=== PATIENT | male | born 1960 | race Caucasian/White ===

== ENCOUNTER 2018-05-25 11:37 | Observation (INO) ==
[2018-05-25] MEDS ORDERED: Ondansetron 4 MG/2 ML VIAL IVP ONE (12:03)
--- NOTE | 2018-05-25 12:05 | Emergency Department Note ---
Disposition Clinical Impression: Alcoholism /alcohol abuse Concussion with loss of consciousness Qualifiers: Encounter type: initial encounter Qualified Code(s): S06.0X9A - Concussion with loss of consciousness of unspecified duration, initial encounter Disposition: Admitted As Inpatient Condition: Good Head Injury HPI - General Chief complaint: ED Head Injury Stated complaint: fall last night Source: patient, EMS Limitations: no limitations - History of Present Illness HPI Narrative: Patient is a pleasant 68-year-old male with no significant PMH other than alcoholism and hypertension who is presenting to [facility] Emergency Room with a chief complaint off altered mental status by EMS. Neighbors called EMS because he was found unconscious. It appears that he had head injury in the past few days and has bruises on his face. He has loss of consciousness of unclear time. He has been drinking alcohol and unable to quantify the amount. Patient denies any fever or chills. Pt also denies any eye pain or visual disturbances. There is no sore throat or nasal or facial congestion. There is no chest pain or racing heart. No shortness of breath or cough. There is no abdominal pain, nausea, vomiting or diarrhea. No dysuria or flank pain. There is no muskulo-skeletal pain, arthralgia or back pain. Patient also denies rash or pruritus. There is no neurological manifestations, no headache, no vertigo or weakness. The patient also denies any depression, hallucinations and there are no homicidal or suicidal ideations. There is no polyuria or polydipsia. There is no easy bruising or bleeding. Review of other systems is otherwise negative except above. Onset (ago): day(s) Mechanism of Injury: fall from ground level Place: home Loss of Consciousness: yes - Related Data Home Medications Medication Instructions Recorded Confirmed No Known Home Drugs 05/25/18 05/25/18 Allergies/Adverse reactions: Allergies Allergy/AdvReac Type Severity Reaction Status Date / Time No Known Allergies Allergy Verified 02/18/16 18:06 All systems ED: reviewed and negative except as stated. Review of Systems: As Per HPI Constitutional: Denies: fever, chills Eyes: Denies: eye pain, eye discharge ENT ED: Denies: ear pain, throat pain Cardiovascular: Denies: chest pain, palpitations Respiratory: Denies: cough, dyspnea Gastrointestinal: Denies: abdominal pain, nausea Past Medical History - Past Medical History Medical history: Reports: other Psychiatric history: Reports: anxiety, bipolar, depression - Social History Smoking Status: Never smoker Smokeless Tobacco Status: No Alcohol use: Reports: heavy, recent Drug use: Reports: none Physical Exam - General Limitations: no limitations General appearance: lethargic - Head Head exam: normocephalic, normal inspection, other (Fascial bruises on his nose and cheeks) - Eye Eye exam: Present: normal appearance, PERRL, EOMI - Expanded Eye Exam Pupils: Left: reactive - ENT ENT exam: normal exam, normal oropharynx, mucous membranes moist - Expanded ENT Exam External ear exam: Present: normal external inspection Mouth exam: Present: normal external inspection Teeth exam: Present: normal inspection Throat exam: Present: normal inspection - Neck Neck exam: Present: normal inspection, full ROM, trachea midline - Chest Chest inspection: Present: normal inspection, symmetric chest wall rise - Respiratory Respiratory exam: Present: normal lung sounds bilaterally - Cardiovascular Cardiovascular exam: Present: regular rate, normal rhythm, normal heart sounds - Abdominal Exam Abdominal exam: Present: soft, Non-Tender. Absent: tenderness, distention, guarding, rebound, rigidity - Extremities Exam Extremities exam: Present: normal inspection, full ROM. Absent: tenderness, pedal edema - Expanded Upper Extremity Exam Shoulder exam: Present: normal inspection, full ROM Arm exam: Present: normal inspection, full ROM Elbow exam: Present: normal inspection, full ROM Forearm/Wrist exam: Present: normal inspection, full ROM Hand exam: Present: normal inspection, full ROM Vascular exam: Normal: capillary refill, radial pulse - Expanded Lower Extremity Exam Hip/Pelvis exam: Present: normal inspection, full ROM Upper leg exam: Present: normal inspection, full ROM Knee exam: Present: normal inspection, full ROM Lower leg exam: Present: normal inspection, full ROM Ankle exam: Present: normal inspection, full ROM Foot/toe exam: Present: normal inspection, full ROM Neurovascular/Tendon exam: Absent: motor deficit, sensory deficit, tendon deficit - Back Exam Back exam: Present: normal inspection, full ROM. Absent: tenderness - Neurological Exam Neurological exam: Present: alert, oriented X3 - Expanded Neurological Exam Patient oriented to: Present: person, place, time Coma Scale Eye Opening: Spontaneous Coma Scale Motor Response: Obeys Commands Coma Scale Verbal Response: Oriented Coma Scale Total: 15 - Psychiatric Psychiatric exam: Present: normal affect, normal mood - Skin Skin exam: Present: warm, dry, intact, normal color Course Vital Signs Temperature 96.6 F L 05/25/18 11:40 Pulse Rate 72 05/25/18 11:40 Respiratory Rate 17 05/25/18 11:40 Blood Pressure 144/89 05/25/18 11:40 O2 Sat by Pulse Oximetry 100 05/25/18 11:40 Temperature 98.1 F 05/25/18 23:07 Pulse Rate 76 05/25/18 23:07 Respiratory Rate 17 05/25/18 23:07 Blood Pressure 128/87 05/25/18 23:07 O2 Sat by Pulse Oximetry 98 05/25/18 23:07 Oxygen Delivery Oxygen Delivery Room Air Head Injury - Differential Diagnosis Differential Diagnosis: Likely: epidural hematoma, closed head injury, postconcussion sydrome - Medical Records Medical records reviewed: Yes I reviewed the patient's medical records. - Lab Data Lab results reviewed: Yes I reviewed the patient's lab results. Result diagrams: 05/25/18 12:23 05/25/18 12:23 Lab Results 05/25/18 05/25/18 05/25/18 Range/Units 12:07 12:23 12:23 WBC 6.9 (4.3-11.1) K/mcL RBC 5.02 (4.19-5.50) M/mcL Hgb 16.2 (12.9-16.9) g/dL Hct 46.4 (37.5-50.1) % MCV 92.4 (83.0-100.0) fL MCH 32.3 (28.0-33.3) pg MCHC 34.9 (31.6-35.5) g/dL RDW 12.8 (11.5-14.5) % Plt Count 155 (140-400) K/mcL MPV 8.8 L (9.4-12.4) fL Immature Gran % 0.7 (0-4) % Seg Neutrophils % 87.8 % Lymphocytes % 7.9 % Monocytes % 3.3 % Eosinophils % 0.0 % Basophils % 0.3 % Neutrophils # 6.1 (1.6-8.9) K/mcL Lymphocytes # 0.6 (0.6-4.6) K/mcL Monocytes # 0.2 (0.0-1.3) K/mcL Eosinophils # 0.0 (0.0-0.6) K/mcL Basophils # 0.0 (0.0-0.2) K/mcL PT 10.8 (9.4-12.1) Seconds INR 1.0 APTT 25.9 L (26.0-36.0) Seconds Sodium (136-145) mEq/L Potassium (3.5-5.1) mEq/L Chloride (98-107) mEq/L Carbon Dioxide (23-29) mEq/L BUN (6-20) mg/dL Creatinine (0.70-1.30) mg/dL Est GFR ( Amer) (> 60) Est GFR (Non-Af Amer) (> 60) BUN/Creatinine Ratio (6-26) Glucose (70-105) mg/dL POC Glucose 145 H (70-99) mg/dL Calculated Osmolality (280-300) Calcium (8.6-10.3) mg/dL Total Bilirubin (0.3-1.0) mg/dL AST (13-39) Units/L ALT (7-52) Units/L Alkaline Phosphatase (34-104) Units/L Serum Total Protein (6.4-8.9) g/dL Albumin (3.5-5.7) g/dL Globulin (2.4-3.5) g/dL Albumin/Globulin Ratio (1.1-2.2) Ethyl Alcohol (Less than 10) mg/dL 05/25/18 Range/Units 12:23 WBC (4.3-11.1) K/mcL RBC (4.19-5.50) M/mcL Hgb (12.9-16.9) g/dL Hct (37.5-50.1) % MCV (83.0-100.0) fL MCH (28.0-33.3) pg MCHC (31.6-35.5) g/dL RDW (11.5-14.5) % Plt Count (140-400) K/mcL MPV (9.4-12.4) fL Immature Gran % (0-4) % Seg Neutrophils % % Lymphocytes % % Monocytes % % Eosinophils % % Basophils % % Neutrophils # (1.6-8.9) K/mcL Lymphocytes # (0.6-4.6) K/mcL Monocytes # (0.0-1.3) K/mcL Eosinophils # (0.0-0.6) K/mcL Basophils # (0.0-0.2) K/mcL PT (9.4-12.1) Seconds INR APTT (26.0-36.0) Seconds Sodium 129 L (136-145) mEq/L Potassium 4.0 (3.5-5.1) mEq/L Chloride 92 L (98-107) mEq/L Carbon Dioxide 21 L (23-29) mEq/L BUN 11 (6-20) mg/dL Creatinine 0.90 (0.70-1.30) mg/dL Est GFR ( Amer) > 60 (> 60) Est GFR (Non-Af Amer) > 60 (> 60) BUN/Creatinine Ratio 12 (6-26) Glucose 159 H (70-105) mg/dL POC Glucose (70-99) mg/dL Calculated Osmolality 271 L (280-300) Calcium 8.8 (8.6-10.3) mg/dL Total Bilirubin 0.5 (0.3-1.0) mg/dL AST 39 (13-39) Units/L ALT 16 (7-52) Units/L Alkaline Phosphatase 48 (34-104) Units/L Serum Total Protein 7.5 (6.4-8.9) g/dL Albumin 4.2 (3.5-5.7) g/dL Globulin 3.3 (2.4-3.5) g/dL Albumin/Globulin Ratio 1.3 (1.1-2.2) Ethyl Alcohol 186 H (Less than 10) mg/dL - Radiology Data Radiology results reviewed: Yes I reviewed the patient's radiology results. - EKG Data EKG attestation: Yes I reviewed and interpreted this EKG.
[2018-05-25 12:30] LABS: Basophils % 0.3 %; Hematocrit 46.4 % (37.5-50.1); Hemoglobin 16.2 g/dL (12.9-16.9); Immature Granulocytes % 0.7 % (0-4); Lymphocytes # 0.6 K/mcL (0.6-4.6); Lymphocytes % 7.9 %; Mean Corpuscular HGB Conc 34.9 g/dL (31.6-35.5); Mean Corpuscular Hemoglobin 32.3 pg (28.0-33.3); Mean Corpuscular Volume 92.4 fL (83.0-100.0); Mean Platelet Volume 8.8 fL (9.4-12.4); Monocytes # 0.2 K/mcL (0.0-1.3); Monocytes % 3.3 %; Neutrophils # 6.1 K/mcL (1.6-8.9); Platelet Count 155 K/mcL (140-400); Red Blood Count 5.02 M/mcL (4.19-5.50); Red Cell Distribution Width 12.8 % (11.5-14.5); Segmented Neutrophils % 87.8 %
[2018-05-25 12:42] LABS: Prothrombin Time 10.8 Seconds (9.4-12.1)
[2018-05-25 12:45] LABS: Activated Partial Thrombo Time 25.9 Seconds (26.0-36.0)
[2018-05-25 12:53] LABS: Alanine Aminotransferase 16 Units/L (7-52); Albumin 4.2 g/dL (3.5-5.7); Albumin/Globulin Ratio 1.3 (1.1-2.2); Alkaline Phosphatase 48 Units/L (34-104); Aspartate Amino Transferase 39 Units/L (13-39); BUN/Creatinine Ratio 12 (6-26); Bilirubin,Total 0.5 mg/dL (0.3-1.0); Blood Urea Nitrogen 11 mg/dL (6-20); Calcium 8.8 mg/dL (8.6-10.3); Carbon Dioxide 21 mEq/L (23-29); Chloride 92 mEq/L (98-107); Ethanol 186 mg/dL (Less than 10); Globulin 3.3 g/dL (2.4-3.5); Glucose 159 mg/dL (70-105); Osmolality,Calculated 271 (280-300); Sodium 129 mEq/L (136-145); Total Protein 7.5 g/dL (6.4-8.9); eGFR For African Americans > 60 (> 60); eGFR For Non-African Americans > 60 (> 60)
[2018-05-25] MEDS ORDERED: MVI, adult with vitamin K 10 ML in 0.9 % Sodium Chloride 1,000 ML IVC ONE (13:23)
[2018-05-25] MEDS ORDERED: Ondansetron ODT 4 MG TAB.RAPDIS SL PRN ×2 (14:43→15:10)
[2018-05-25] MEDS ORDERED: Naloxone 0.4 MG/ML INJ IVP PRN ×2 (14:43→15:10)
[2018-05-25] MEDS ORDERED: 0.9 % Sodium Chloride 1,000 ML IVC SCH ×3 (14:45→18:00)
[2018-05-25 16:00] LABS: Bilirubin,Urine Negative (Negative); Blood,Urine Negative (Negative); Clarity,Urine Clear (Clear); Color,Urine Yellow (Yellow); Glucose,Urine (UA) 100 mg/dL (Normal); Ketones,Urine 40 mg/dL (Negative); Leukocyte Esterase,Urine Negative (Negative); Nitrite,Urine Negative (Negative); PH,Urine 5.5 pH Units (5.0-8.0); Protein,Urine Negative (Neg-Trace); Specific Gravity,Urine 1.015 (1.010-1.025); Urobilinogen,Urine Normal (Normal)
[2018-05-25 16:17] LABS: Amphetamine Screen,Urine Negative ng/mL (Cutoff=1000); Barbiturate Screen,Urine Negative ng/mL (Cutoff=200); Benzodiazepines Screen,Urine Negative ng/mL (Cutoff=200); Cannabinoid Screen,Urine Positive ng/mL (Cutoff = 50); Cocaine Screen,Urine Negative ng/mL (Cutoff= 300); Opiate Screen,Urine Negative ng/mL (Cutoff=300); Phencyclidine Screen,Urine Negative ng/mL (Cutoff=25)
--- NOTE | 2018-05-25 17:48 | Internal Med History&Physical ---
Date of Encounter: 05/25/18 Time of Encounter: 17:15 Assessment and Plan (1) Hyponatremia Current visit: Yes Status: Acute Normal saline IV ordered. Recheck labs in a.m. (2) Intoxication Current visit: Yes Status: Acute Banana bag ordered. Check folate level in a.m. Will give Augmentin since left shift present on WBC differential with history of vomiting. (3) Facial abrasion Current visit: Yes Status: Acute Will give Augmentin as above. Reassess in a.m. Qualifiers: Encounter type: initial encounter Qualified Code(s): S00.81XA - Abrasion of other part of head, initial encounter (4) Substance abuse Current visit: Yes Status: Acute He does not desire rehabilitation. Internal Medicine - H&P: HPI Chief complaint: Fall, intoxication, vomiting Admitted From: Emergency Dept Plans for Post Hospital Care: Home History of present illness: Mr. Daniel is a 58 year old male who came to emergency room stating he had fallen on the sidewalk last evening while intoxicated. He was able to get up and walk to a friend's house where he spent the night on a couch on the friend' s front porch. On awakening this morning he did not feel well and had diaphoresis and 2-3 episodes of vomiting. He was brought to emergency room and evaluated and admitted to [facility] floor for ongoing care needs. He denies significant pain at the present time. He states he drinks 6-24 cans of beer per day since age 18 except for 2 year interval of being dry approximately 4 years ago. He denies disorders of his liver gallbladder or exocrine pancreas. He does not desire to stop drinking. Past Med Surg Social Fam HX - Past Medical History Medical history: other Additional medical history: skin CA nose Psychiatric history: anxiety, bipolar, depression - Past Surgical History Additional surgical history: Bilateral arm orif. neck fracture with repair. leg orif. - Social History Smoking Status: Never smoker Smokeless Tobacco Status: No Alcohol use: heavy, recent Drug use: none Internal Medicine - H&P: Meds No Known Home Drugs 05/25/18 [History] 3 Allergy/AdvReac Type Severity Reaction Status Date / Time No Known Allergies Allergy Verified 02/18/16 18:06 All Systems PM: A 10-system review of systems was performed and is negative for pertinent findings except as documented above in the HPI. Review of systems: Gen.: He states he has lost approximately 5 pounds within the past 3 months, unintentionally Cardiovascular: He denies AR hypertension heart failure angina DVT or pulmonary embolus Respiratory: He is a lifelong nonsmoker and denies chronic lung disease GI: As per history of present illness : Denies hematuria dysuria or kidney stones Neurologic: Denies large distribution strokes or seizures. Endocrine: He denies diabetes thyroid disease or hyperlipidemia Hematology/oncology: Denies blood disorders cancers or anemia Psychiatric: Denies anxiety depression or other mental health issues [place] skeletal: He had cervical spine fracture 2004 with surgical repair. He denies other bone joint or muscle disorders. - Constitutional Vitals: Temp Pulse Resp BP Pulse Ox 97.7 F 75 16 143/91 99 05/25/18 15:17 05/25/18 15:17 05/25/18 15:17 05/25/18 15:17 05/25/18 15:17 Exam: Gen.: He is a well-developed well-nourished male lying in bed who appears in no acute distress HEENT: He has dried blood on his upper nose and left medial forehead area. Eyes : EOMI. There is no scleral icterus. Mouth: Mucosa is moist. Neck: There is no thyromegaly or adenopathy noted. Heart: Regular without murmurs gallops or ectopics Lungs: No wheezes or crackles are heard. Abdomen: Soft and nontender. No masses or guarding are noted. Extremities: There is no cyanosis edema or clubbing noted. Dorsalis pedis and posterior tibial pulses are 1-2 over 2 bilaterally. Neurologic: Mental status: He is talkative and a good historian. Cranial nerves : Smile is symmetric. Forehead wrinkles bilaterally. Tongue protrudes midline. EOMI. Motor: There is no pronator drift. Cerebellar: Finger to nose is intact bilaterally. Skin: Warm and dry Internal Med - H&P Results - Labs CBC & Chem 7: 05/25/18 12:23 05/25/18 12:23 Labs: Urine 05/25/18 Range/Units 15:40 Urine Color Yellow (Yellow) Urine Clarity Clear (Clear) Urine pH 5.5 (5.0-8.0) pH Units Ur Specific [place] 1.015 (1.010-1.025) Urine Protein Negative (Neg-Trace) mg/dL Urine Glucose (UA) 100 H (Normal) mg/dL
[2018-05-25] MEDS ORDERED: Acetaminophen 325 MG TABLET PO PRN (18:02)
[2018-05-25] MEDS: ALPRAZolam 0.5 MG TABLET PO PRN (22:27)
[2018-05-26] MEDS: ALPRAZolam 0.5 MG TABLET PO PRN (04:50)
[2018-05-26 06:03] LABS: Basophils % 0.8 %; Eosinophils % 0.8 %; Hematocrit 41.1 % (37.5-50.1); Hemoglobin 14.3 g/dL (12.9-16.9); Immature Granulocytes % 0.3 % (0-4); Lymphocytes # 1.2 K/mcL (0.6-4.6); Lymphocytes % 33.8 %; Mean Corpuscular HGB Conc 34.8 g/dL (31.6-35.5); Mean Corpuscular Hemoglobin 32.1 pg (28.0-33.3); Mean Corpuscular Volume 92.2 fL (83.0-100.0); Mean Platelet Volume 9.8 fL (9.4-12.4); Monocytes # 0.3 K/mcL (0.0-1.3); Monocytes % 8.7 %; Platelet Count 131 K/mcL (140-400); Red Blood Count 4.46 M/mcL (4.19-5.50); Red Cell Distribution Width 12.8 % (11.5-14.5); Segmented Neutrophils % 55.6 %
[2018-05-26 06:33] LABS: BUN/Creatinine Ratio 13 (6-26); Blood Urea Nitrogen 10 mg/dL (6-20); Calcium 8.8 mg/dL (8.6-10.3); Carbon Dioxide 28 mEq/L (23-29); Chloride 98 mEq/L (98-107); Glucose 62 mg/dL (70-105); Osmolality,Calculated 273 (280-300); Potassium 4.2 mEq/L (3.5-5.1); Sodium 133 mEq/L (136-145); eGFR For African Americans > 60 (> 60); eGFR For Non-African Americans > 60 (> 60)
[2018-05-26 06:59] VITALS: BP 98/62
--- NOTE | 2018-05-26 09:33 | Discharge Summary ---
Orders not resulted at time of discharge: Pending orders 05/26/18 04:45 Folate AM 0400 Vitamin B12 AM 0400 Date of Encounter: 05/26/18 Time of Encounter: 09:25 - Discharge Diagnosis (1) Hyponatremia Priority: Primary Status: Acute (2) Intoxication Priority: Secondary Status: Acute (3) Facial abrasion Priority: Secondary Status: Acute Qualifiers: Encounter type: initial encounter Qualified Code(s): S00.81XA - Abrasion of other part of head, initial encounter (4) Substance abuse Priority: Secondary Status: Acute Hospital course: Mr. Daniel is a 58 year old male who came to emergency room stating he had fallen on the sidewalk last evening while intoxicated. He was able to get up and walk to a friend's house where he spent the night on a couch on the friend' s front porch. On awakening this morning he did not feel well and had diaphoresis and 2-3 episodes of vomiting. He was brought to emergency room and evaluated and admitted to [facility] for ongoing care needs. Initial orders were written by the emergency room physician. I saw him on May 25 and performed the history and physical. He was given IV saline. Sodium level donovan to 133 by the following morning. He felt improved overall and stable for discharge home. I encouraged him strongly to discontinue alcohol use. He was started on Augmentin. Left shift resolved on follow-up CBC differential. He will continue with Augmentin and Lactobacillus for 2 additional days at discharge. Folate and B12 level are pending at time of discharge. His PCP can follow up on this. He will be discharged home and follow with a PCP within 1 week. - Time Spent with Patient Total time spent providing and/or coordinating discharge services: - Discharge Medications Prescriptions: Amoxicillin/Clavulanate [Augmentin] 875 mg PO BIDWM #4 tablet Lactobacillus [Culturelle] 1 each PO BID #4 [email or web address] Home Medications: Amoxicillin/Clavulanate [Augmentin] 875 mg PO BIDWM #4 tablet 05/26/18 [Rx] Lactobacillus [Culturelle] 1 each PO BID #4 [email or web address] 05/26/18 [Rx] Allergies/Adverse Reactions: 3 Allergy/AdvReac Type Severity Reaction Status Date / Time No Known Allergies Allergy Verified 02/18/16 18:06 Date of admission: 05/25/18 14:58 Primary care physician: PCP NONE - Constitutional Vitals: Temp Pulse Resp BP Pulse Ox 98.4 F 93 15 98/62 97 05/26/18 06:58 05/26/18 06:58 05/26/18 06:58 05/26/18 06:58 05/26/18 06:58 - Patient Status Disposition: Home, Self-Care Condition: Good - Discharge Instructions Follow Up With: NONE,PCP [Primary Care Provider] - 1 week - Diet and Activity Activity: resume usual activities as tolerated Diet: advance to your usual diet
[2018-05-26 09:45] LABS: Folate 9.1 ng/mL (3.0-16.0)
== END 2018-05-26 12:45 | disposition home or self-care (01) ==
LOC: EMEROOPIK 11:37 → INPPIK 11:37
PROVIDERS: ADMIT Internal Medicine; ATTEND Internal Medicine